=== PATIENT | male | born 1960 | race Caucasian/White ===

== ENCOUNTER 2018-01-12 20:03 | Emergency (ER) | payer MEDICARE, OTHER ==
[~2018-01-12] VITALS: Ht 177.8 cm; Wt 74.5 kg
[2018-01-12 20:05] VITALS: BP 144/101
== END 2018-01-12 20:51 | disposition home or self-care (01) ==
LOC: ER 20:04
DX: S93.401A Sprain of unspecified ligament of right ankle, initial encounter (principal); Z91.041 Radiographic dye allergy status; W10.9XXA Fall (on) (from) unspecified stairs and steps, initial encounter; Y93.89 Activity, other specified; Y92.099 Unspecified place in other non-institutional residence as the place of occurrence of the external cause; Y99.8 Other external cause status
CPT/HCPCS: 73590; 99284; A6449